=== PATIENT | female | born 1965 | race African-American/Black ===

== ENCOUNTER 2017-09-08 20:20 | Emergency (ER) | payer BC ==
[~2017-09-08] VITALS: Ht 162.6 cm; Wt 57.0 kg
[2017-09-08] MEDS ORDERED: ASPIRIN 81MG TABLET PO STA (22:24)
[2017-09-08] MEDS ORDERED: NITROGLYCERIN 0.4MG TABLET SL SL PRN (22:30)
[2017-09-08 22:44] LABS: BASOPHILS % 0.6 % (0.0-2.0); EOSINOPHILS % 1.2 % (0.0-5.0); HEMATOCRIT. 33.8 % (36.0-48.0); HEMOGLOBIN. 11.4 g/dL (12.0-16.0); LYMPHOCYTES % 30.3 % (20.0-50.0); MEAN CORPUSCULAR HEMOGLOBIN 28.2 pg (28.0-32.0); MEAN CORPUSCULAR VOLUME 83.3 fL (81.0-99.0); MEAN PLATELET VOLUME 8.7 fl (7.4-10.4); MONOCYTES % 8.1 % (2.0-8.0); NEUTROPHILS % 59.8 % (40.0-76.0); PLATELET 232 x1000/uL (130-400); RED BLOOD CELL COUNT 4.06 mill/uL (4.2-5.4); RED CELL DISTRIBUTION WIDTH 13.3 % (11.6-14.6)
[2017-09-08 22:49] LABS: CHLORIDE 109 mEq/L (98-107)
[2017-09-08 22:56] LABS: D-DIMER 0.19 mg/L FEU (<0.50); PARTIAL THROMBOPLASTIN TIME 25.3 sec (23.4-31.0); PROTHROMBIN TIME 10.5 sec (9.4-11.6)
[2017-09-08 22:57] LABS: CARBON DIOXIDE 26 mEq/L (21-32)
[2017-09-08 23:00] LABS: TROPONIN I < 0.02 ng/mL (0.00-0.04)
[2017-09-09 01:30] VITALS: BP 129/83
== END 2017-09-09 01:32 | disposition home or self-care (01) ==
LOC: ER 21:59
DX: R07.9 Chest pain, unspecified (principal); F41.9 Anxiety disorder, unspecified; Z56.3 Stressful work schedule
CPT/HCPCS: 36415; 71010; 80053; 84484; 85025; 85379; 85610; 85730; 93005; 99285; Z7610